=== PATIENT | male | born 1975 | race Caucasian/White ===

== ENCOUNTER 2021-01-22 09:57 | Inpatient (IN) ==
[~2021-01-22 09:57] MED LIST: Buffered Lidocaine 1% SYRIN 1 ml INTRADERM ONE; Lactated Ringers 1000 ml BAG 1,000 ML IV SCH
[2021-01-22] MEDS ORDERED: ceFAZolin 2 GM PREMIX 2 GM/50 ML BAG ONE (10:20)
[2021-01-22] MEDS ORDERED: ceFAZolin 1 GM ADVAN 1 GM ADDV.VIAL IVPB ONE (10:20)
[2021-01-22] MEDS ORDERED: Heparin 5000 UNITS/ML 1 mL VIAL ONE (10:20)
[2021-01-22] MEDS ORDERED: Bupivacaine 0.25% EPI 200,000 30 ML SDV ONE (11:38)
[2021-01-22] MEDS ORDERED: Methylene Blue 0.5 % 50 MG/10 ML AMP IV ONE (11:38)
[2021-01-22] MEDS ORDERED: Propofol 10 MG/ML 20 ML BTL ONE (11:58)
[2021-01-22] MEDS ORDERED: Midazolam 2 mg/2 ml VIAL 1 mg/ml 2 ml VIAL (2 mg) ONE (11:58)
[2021-01-22] MEDS ORDERED: Lidocaine 2% PF 5 ML VIAL ONE (11:58)
[2021-01-22] MEDS ORDERED: fentaNYL 100 mcg/2 ml 50 MCG/ML VIAL ONE ×3 (11:59→16:13)
[2021-01-22] MEDS ORDERED: Ketamine HCL 50 mg/ml 10 ml VIAL (500 MG) ONE (11:59)
[2021-01-22] MEDS ORDERED: Rocuronium 50 mg VIAL 10 mg/ml 5 ml VIAL (50 mg) ONE ×3 (12:04→13:50)
[2021-01-22] MEDS ORDERED: EPHEDrine (Pressors) 50 MG/ML VIAL ONE (13:20)
[2021-01-22] MEDS ORDERED: HYDROmorphone 1 MG/1 ML SYRINGE IV PRN (14:13)
[2021-01-22] MEDS ORDERED: Naloxone 0.4 mg VIAL 0.4 mg/ml 1 ml VIAL IV PRN (14:13)
[2021-01-22] MEDS ORDERED: Ondansetron 4 mg VIAL 2 MG/ML 2 ml VIAL IV PRN ×2 (14:13→17:34)
[2021-01-22] MEDS ORDERED: Ondansetron 4 mg VIAL 2 MG/ML 2 ml VIAL ONE (15:47)
[2021-01-22] MEDS ORDERED: Dexamethasone IV 4 MG/ML VIAL 1 ml VIAL ONE (15:47)
[2021-01-22] MEDS ORDERED: ceFAZolin VIAL VIAL ONE (16:05)
[2021-01-22] MEDS ORDERED: Metoprolol Tartrate 5 mg VIAL 5 ml VIAL (1 mg/ml) ONE (16:40)
[2021-01-22] MEDS ORDERED: Phenylephrine 40 mcg/mL 10mL (400mcg) SYRINGE ONE (16:46)
[2021-01-22] MEDS ORDERED: Sugammadex 500 MG/5 ML 5 ml VIAL IV PUSH ONE (16:57)
[2021-01-22] MEDS ORDERED: HYDROmorphone 1 MG/1 ML SYRINGE ONE ×2 (17:04→19:00)
[2021-01-22] MEDS ORDERED: HYDROmorphone 1 MG/1 ML SYRINGE IV SLOW PU PRN (17:34)
[2021-01-22] MEDS ORDERED: HYDROcodone/ACET. 7.5/325 LIQ 15 ML UDC PO PRN (17:34)
[2021-01-22] MEDS ORDERED: diPHENhydraMINE IV 50 MG/ML 1 ml VIAL (BENADRYL) SLOW PUSH PRN (17:34)
[2021-01-22] MEDS ORDERED: HYDROmorphone 0.5 MG/0.5 ML SYRINGE IV SLOW PU PRN (17:34)
[2021-01-22] MEDS ORDERED: Prochlorperazine 5 mg/ml 2 ml VIAL (10 mg) ONE (18:07)
[2021-01-22] MEDS ORDERED: Prochlorperazine 5 mg/ml 2 ml VIAL (10 mg) IV PRN (18:09)
[2021-01-22] MEDS ORDERED: Dextrose 50% Syringe 50 ml 25 GM/50 ML SYRINGE IV PUSH PRN (18:24)
[2021-01-22] MEDS: Lactated Ringers 1000 ml BAG 1,000 ML IV SCH (20:37)
[2021-01-22] MEDS ORDERED: Metoprolol Tartrate 5 mg VIAL 5 ml VIAL (1 mg/ml) IV ONE (21:40)
[2021-01-22] MEDS ORDERED: Heparin 5000 UNITS/ML 1 mL VIAL SUBCUT SCH (22:00)
[2021-01-22] MEDS: Famotidine IV 10 MG/ML 2 ml VIAL (20 mg) IV SLOW PU SCH (22:31)
[2021-01-22 23:12] LABS: ABS Lymphocytes 0.8 10^3/ul (1.0-4.8); ABS Monocytes 0.4 10^3/ul (0-0.8); ABS Neutrophils 13.9 10^3/ul (1.5-7.7); Eosinophil % 0.1 %; Hematocrit 43 % (42-52); Hemoglobin 14.3 g/dL (14.0-18.0); Lymphocyte % 5.5 %; Mean Corpuscular HGB Conc 33 g/dL (31-36); Mean Corpuscular Hemoglobin 28 pg (27-31); Mean Corpuscular Volume 86 fL (80-94); Platelet Count 254 10^3/uL (150-450); Red Blood Count 5.03 10^6 /uL (4.18-5.48); Red Cell Distribution Width 14 % (10-15); White Blood Count 15.2 10^3/uL (3.5-10.8)
[2021-01-22 23:31] LABS: Albumin 4.3 g/dL (3.2-5.2); Albumin/Globulin Ratio 1.4 (1-3); EGFR African American 146.9 (>60); EGFR Non-African American 121.4 (>60); Magnesium 1.9 mg/dL (1.9-2.7); Potassium 4.1 mmol/L (3.5-5.0); Total Bilirubin 0.5 mg/dL (0.2-1.0); Total Protein 7.3 g/dL (6.4-8.9)
[2021-01-23] MEDS: Lactated Ringers 1000 ml BAG 1,000 ML IV SCH ×3 (03:16→17:11)
[2021-01-23 03:39] LABS: Hematocrit 40 % (42-52); Hemoglobin 13.4 g/dL (14.0-18.0)
[2021-01-23] MEDS: Famotidine IV 10 MG/ML 2 ml VIAL (20 mg) IV SLOW PU SCH ×2 (10:52→21:18)
[2021-01-23] MEDS: D5W 1/2 NS KCl 20 meq 1000 ml 1,000 ML IV SCH (21:18)
[2021-01-24] MEDS: D5W 1/2 NS KCl 20 meq 1000 ml 1,000 ML IV SCH (05:19)
[2021-01-24] MEDS: Famotidine IV 10 MG/ML 2 ml VIAL (20 mg) IV SLOW PU SCH (08:44)
[2021-01-24 09:59] LABS: Calcium 8.8 mg/dL (8.6-10.3); EGFR African American 124.1 (>60); EGFR Non-African American 102.6 (>60); Potassium 4.2 mmol/L (3.5-5.0)
[2021-01-24 12:00] VITALS: BP 142/96
[2021-01-25] MEDS ORDERED: Scopolamine PATCH Remove NOTE PATCH OFF SCH (19:00)
== END 2021-01-24 15:16 | disposition home or self-care (01) | DRG 403 ==
LOC: AA 09:57 → SSU 17:34
PROVIDERS: ADMIT Surgery; ATTEND Surgery